=== PATIENT | male | born 1985 | race Caucasian/White ===

== ENCOUNTER 2017-09-19 09:26 | Outpatient (CLI) | END 2017-09-19 09:27 | disposition home or self-care (01) | LOC: FCC-LAB 09:26 | PROVIDERS: ATTEND Family Medicine | DX: E11.9 Type 2 diabetes mellitus without complications (principal); I10 Essential (primary) hypertension; E78.2 Mixed hyperlipidemia | CPT/HCPCS: 36415; 80053; 80061; 83037 ==

== ENCOUNTER 2017-12-18 08:57 | Outpatient (CLI) | END 2017-12-18 08:58 | disposition home or self-care (01) | LOC: LAB 08:57 | PROVIDERS: ATTEND Family Medicine | DX: E78.2 Mixed hyperlipidemia (principal); E11.9 Type 2 diabetes mellitus without complications; I10 Essential (primary) hypertension; Z51.81 Encounter for therapeutic drug level monitoring | CPT/HCPCS: 36415; 80053; 80061; 83036; 85025; 93005; 93010 ==